=== PATIENT | male | born 1965 | race Caucasian/White ===

== ENCOUNTER → 2017-12-20 | Outpatient (CLI) | payer BC ==
--- NOTE | 2017-12-20 16:00 | KCIC ---
History: Bilateral knee pain. Intermittent swelling. Comparison: None. Findings: AP, lateral, and oblique views of the left knee. No acute fracture or dislocation is identified. Small joint effusion is seen. Patella eduardo is seen. Fabella is seen. Mild tricompartment degeneration is present. AP, lateral, and oblique views of the right knee. No joint effusion is identified. No acute fracture or dislocation is seen. Mild tricompartment degeneration is present. Fabella is noted. Within the posterior soft tissues, there are 2 calcified structures each measuring about 1.5 cm with chondroid appearance. These could represent synovial osteochondromata or other types of loose bodies, possibly within a Serra's cyst. Patella eduardo is seen. Impression: 1. No acute osseous traumatic injury identified in either knee. 2. Bilateral patellae altae. 3. Small left knee joint effusion. 4. Mild tricompartment degeneration left knee. 5. Mild tricompartment degeneration of the right knee. 6. 2 calcified bodies involving the posterior right knee, could represent synovial osteochondromata or other loose bodies, possibly within Serra's cyst. Electronically signed by: Liev Townsend MD (12/20/2017 3:57 PM) [place] [id number]
== END | disposition home or self-care (01) ==
LOC: KCIC 11:41
PROVIDERS: ATTEND Family Medicine
DX: M17.0 Bilateral primary osteoarthritis of knee (principal); M22.8X1 Other disorders of patella, right knee; M22.8X2 Other disorders of patella, left knee
CPT/HCPCS: 73562